=== PATIENT | female | born 1945 | race Caucasian/White ===

== ENCOUNTER 2021-05-12 16:06 | Outpatient (CLI) | payer MEDICARE | END 2021-05-12 16:07 | disposition home or self-care (01) | LOC: COV 16:06 | PROVIDERS: ATTEND Family Medicine | DX: Z20.822 Contact with and (suspected) exposure to COVID-19 (principal) ==

== ENCOUNTER 2022-01-13 07:00 | Outpatient (CLI) | payer MEDICARE ==
[2022-01-13 15:42] LABS: BILIRUBIN,URINE NEGATIVE (NEGATIVE); GLUCOSE, URINE (UA) NEGATIVE (NEGATIVE); KETONES,URINE (UA) NEGATIVE (NEGATIVE); LEUKOCYTE ESTERASE, URINE MODERATE (NEGATIVE); NITRITE,URINE NEGATIVE (NEGATIVE); OCCULT BLOOD,URINE LARGE (NEGATIVE); PH,URINE 5.5 PH (5.0-7.5); PROTEIN,URINE 100 mg/dL (NEGATIVE); UROBILINOGEN,URINE 0.2 (NORMAL) E.U./dL (NORMAL)
[2022-01-13 15:45] LABS: CLARITY,URINE HAZY (CLEAR)
[2022-01-13 16:08] LABS: BACTERIA,URINE Few /HPF (None Seen); RBC,URINE TNTC /HPF (0-5); SQUAMOUS EPITHELIAL CELL,UR FEW Squamous (<= Few); WBC,URINE >25 /HPF (0-5)
== END 2022-01-13 23:59 | disposition home or self-care (01) ==
LOC: LAB.R 07:00
PROVIDERS: ATTEND Internal Medicine
DX: R39.9 Unspecified symptoms and signs involving the genitourinary system (principal)
CPT/HCPCS: 81001; 81003; 87086

== ENCOUNTER 2022-03-30 08:00 | Outpatient (CLI) | payer MEDICARE ==
[2022-03-30 15:39] LABS: BASOPHILS # (AUTO) 0.1 10^3/uL (0.0-0.1); BASOPHILS % (AUTO) 0.8 %; EOSINOPHILS # (AUTO) 0.3 10^3/uL (0.0-0.7); EOSINOPHILS % (AUTO) 4.3 %; HCT - HEMATOCRIT 40.6 % (37.0-47.0); HGB - HEMOGLOBIN 13.6 g/dL (12.0-16.0); LYMPHOCYTES # (AUTO) 1.4 10^3/uL (1.5-3.5); MEAN CORPUSCULAR HGB CONC 33.5 g/dL (32.0-36.0); MEAN CORPUSCULAR VOLUME 98.5 fL (81.0-99.0); MEAN PLATELET VOLUME 10.5 fL (7.9-10.8); MONOCYTES # (AUTO) 0.7 10^3/uL (0.0-1.0); MONOCYTES % (AUTO) 10.7 %; NEUTROPHILS # (AUTO) 3.8 10^3/uL (1.5-6.6); NEUTROPHILS % (AUTO) 60.9 %; PLT - PLATELET COUNT 271 10^3/uL (130-450); RED BLOOD COUNT 4.12 10^6/uL (4.20-5.40); RED CELL DISTRIBUTION WIDTH 12.5 % (12.0-15.0); WHITE BLOOD COUNT 6.3 x10^3/uL (4.8-10.8)
[2022-03-30 16:26] LABS: ALBUMIN 4.5 g/dL (3.2-5.5); ALBUMIN/GLOBULIN RATIO 1.6 (1.0-2.2); ALKALINE PHOSPHATASE 57 IU/L (42-121); ALT ALANINE AMINOTRANSFERASE 13 IU/L (10-60); AST ASPARTATE AMINOTRANSFERASE 18 IU/L (10-42); BILIRUBIN,TOTAL 0.9 mg/dL (0.2-1.0); BUN - BLOOD UREA NITROGEN 19 mg/dL (6-20); CALCIUM 9.4 mg/dL (8.5-10.3); CARBON DIOXIDE - CO2 28 mmol/L (21-32); CHLORIDE 97 mmol/L (101-111); CHOL/HDL RATIO 2.7 (<4.4); CHOLESTEROL 188 mg/dL; CK- CREATINE KINASE 71 IU/L (22-269); GFR - MDRD 54 (>89); GLUCOSE 103 mg/dL (70-100); HDL CHOLESTEROL 70 mg/dL; LDL CHOLESTEROL,CALCULATED 92 mg/dL; LDL/HDL RATIO 1.3 (<4.4); POTASSIUM 3.6 mmol/L (3.5-5.0); SODIUM 134 mmol/L (135-145); TOTAL PROTEIN 7.3 g/dL (6.7-8.2); TRIGLYCERIDES 131 mg/dL; VLDL CHOLESTEROL 26 mg/dL
[2022-03-30 21:40] LABS: ESTIMATED AVERAGE GLUCOSE 123 mg/dL (70-100); HEMOGLOBIN A1c% 5.9 % (4.27-6.07)
== END 2022-03-30 23:59 | disposition home or self-care (01) ==
LOC: LAB.R 08:00
PROVIDERS: ATTEND Internal Medicine
DX: Z00.00 Encounter for general adult medical examination without abnormal findings (principal); U07.1 COVID-19; H02.009 Unspecified entropion of unspecified eye, unspecified eyelid; C50.919 Malignant neoplasm of unspecified site of unspecified female breast; E78.5 Hyperlipidemia, unspecified; I10 Essential (primary) hypertension; R73.01 Impaired fasting glucose; J30.2 Other seasonal allergic rhinitis
CPT/HCPCS: 80053; 80061; 82550; 83036; 83721; 84443; 85025

== ENCOUNTER 2022-05-05 10:04 | Outpatient (CLI) | payer MEDICARE ==
--- NOTE | 2022-05-09 10:24 | Mammography Report ---
BILATERAL DIGITAL SCREENING MAMMOGRAM 3D/2D: 05/05/2022 CLINICAL: Routine screening. Personal history of right breast cancer. No prior exams were available for comparison. Both breasts are almost entirely fatty (category a/<25% glandular tissue). The right breast has post-operative findings. There is a possible asymmetry in the left breast far posterior depth lateral region seen on the crani ocaudal view only. No other significant masses, calcifications, or other findings are seen in either breast. IMPRESSION: INCOMPLETE: NEEDS ADDITIONAL IMAGING EVALUATION The possible asymmetry in the left breast far posterior depth is indeterminate. Additional views wit h possible ultrasound are recommended. This exam was interpreted at Station ID: [id number]. NOTE: For mammograms, a report in lay terms will be sent to the patient. Approximately 15% of breast malignancies will not be visualized mammographically. In the management of a palpable breast mass, a negative mammogram must not discourage biopsy of a clinically suspicious lesion. Electronically Signed By: Chung Spencer M.D. aty/:05/05/2022 12:43:21 ACR BI-RADS Category 0: Incomplete 3340F PARENCHYMAL PATTERN: (F) - The breast(s) demonstrate(s) diffuse fatty replacement. BI-RADS CATEGORY: (0) - 0 Mammo and [place] [id number] Immediate follow-up LATERALITY: (L)
== END 2022-05-05 10:05 | disposition home or self-care (01) ==
LOC: DI 10:04
PROVIDERS: ATTEND Internal Medicine
DX: Z12.31 Encounter for screening mammogram for malignant neoplasm of breast (principal); R92.8 Other abnormal and inconclusive findings on diagnostic imaging of breast; Z85.3 Personal history of malignant neoplasm of breast

== ENCOUNTER 2022-05-29 10:47 | Outpatient (CLI) | payer MEDICARE ==
--- NOTE | 2022-05-30 11:31 | Mammography Report ---
UNILATERAL LEFT DIGITAL DIAGNOSTIC MAMMOGRAM 3D/2D: 05/29/2022 CLINICAL: Patient returns today to evaluate an asymmetry in the left breast. Personal hx of bc in rig ht breast. Comparison is made to exam dated: 05/05/2022 mammogram - [facility]. The left breast is almost entirely fatty (category a/<25% glandular tissue). The previously seen asymmetry in the left breast posterior depth seen on craniocaudal view only corre sponds with a portion of the lateral edge of the pectoralis major muscle. No significant masses, calcifications, or other findings are seen in the breast. IMPRESSION: BENIGN The previously seen left breast asymmetry corresponds to the left pectoralis major muscle. There is no mammographic evidence of malignancy. Return to annual mammogram screening schedule is rec ommended. This exam was interpreted at Station ID: [id number]. NOTE: For mammograms, a report in lay terms will be sent to the patient. Approximately 15% of breast malignancies will not be visualized mammographically. In the management of a palpable breast mass, a negative mammogram must not discourage biopsy of a clinically suspicious lesion. Electronically Signed By: Brennon muhammad/rodger:05/29/2022 16:35:18 ACR BI-RADS Category 2: Benign Finding(s) 3342F PARENCHYMAL PATTERN: (F) - The breast(s) demonstrate(s) diffuse fatty replacement. BI-RADS CATEGORY: (2) - 2 Mammogram [id number] return to screening LATERALITY: (B)
== END 2022-05-29 10:48 | disposition home or self-care (01) ==
LOC: DI 10:47
PROVIDERS: ATTEND Internal Medicine
DX: R92.8 Other abnormal and inconclusive findings on diagnostic imaging of breast (principal)

== ENCOUNTER 2022-10-02 13:32 | Outpatient (CLI) | payer MEDICARE ==
--- NOTE | 2022-10-02 14:31 | XRAY Report ---
PROCEDURE: Finger(s) LT INDICATIONS: LEFT THUMB PAIN TECHNIQUE: AP hand, 2 views of the first finger(s) acquired. COMPARISON: None FINDINGS: Bones: No fractures or dislocations. No suspicious bony lesions. First carpometacarpal and triscap he joint space narrowing with subchondral sclerosis. Generalized osseous demineralization present. Soft tissues: No suspicious soft tissue calcifications. IMPRESSION: Osteoarthritic changes without fracture or foreign body Reviewed by: Hawk Pond MD on 10/02/2022 1:30 PM [facility] Approved by: Hawk Pond MD on 10/02/2022 1:30 PM [place] Station ID: [id number]
== END 2022-10-02 13:33 | disposition home or self-care (01) ==
LOC: DI.WOS 13:32
PROVIDERS: ATTEND Orthopaedic Surgery
DX: M18.12 Unilateral primary osteoarthritis of first carpometacarpal joint, left hand (principal); M19.042 Primary osteoarthritis, left hand

== ENCOUNTER 2023-09-07 06:52 | Outpatient (CLI) | payer MEDICARE ==
--- NOTE | 2023-09-07 10:50 | MRI Report ---
PROCEDURE: KNEE WO - LT INDICATIONS: PAIN LEFT KNEE TECHNIQUE: Noncontrast sagittal PD fast spin echo and T2 fast spin echo with fat saturation, sagittal 3-D gradie nt sequence with fat saturation; coronal T1 spin echo and PD fast spin echo with fat saturation, and axial PD fast spin echo with fat saturation through the knee. COMPARISON: X-ray left knee, 05/08/2018. FINDINGS: Image quality: Excellent. Menisci: There is lateral meniscal extrusion and complex tear of the medial meniscus involving the belle dy, as well as both anterior and posterior horns. There is oblique tear of the posterior horn of the medial meniscus. A small vertical tear is noted i n the peripheral aspect of the body of the medial meniscus. Cruciate ligaments: There is high-grade partial tear of the anterior cruciate ligament. Some intact f ibers of ACL are present. The posterior cruciate ligament is intact. Medial structures: The medial collateral ligament appears intact. The semimembranosus tendon insert ions and meniscocapsular junction appear intact. Visualized portions of the pes anserinus tendons ap pear normal. No abnormal bursal fluid. Lateral structures: The lateral collateral ligament, long and short heads of the biceps femoris tend on appear intact. The popliteus tendon appears normal. Iliotibial band appears normal. Anterior structures: The quadriceps and patellar tendons appear intact. Patellar alignment is inga l. No femoral trochlear dysplasia or ventral trochlear prominence. No edema in the infrapatellar fa t pad. Bones and cartilage: No bone marrow contusions or fractures. There is moderate to severe tricompartm ental cartilage thinning and fibrillation with denuded or near-denuded articular surface. There is a 12 x 11 mm cartilage fragment in the weightbearing portion of the medial femoral condyle (series 5 im age 15; series 6 image 14). Joint space: There is fqwzp-ya-quhbgeee knee joint effusion. There is a large Pickett's cyst. Mild syn ovitis thickening. IMPRESSION: 1. Lateral meniscal tear. 2. Medial meniscal tear. 3. High-grade partial ACL tear. 4. A 12 x 11 mm cartilage fragment is seen in the weightbearing portion of the medial femoral condyle . 5. Moderate to severe generalized tricompartmental cartilage thinning and fibrillation. 6. Ofawf-vf-bncpgnes knee joint effusion. 7. A large Pickett's cyst. Reviewed by: Carmen Garzon MD on 09/07/2023 10:49 AM PST Approved by: Carmen Garzon MD on 09/07/2023 10:49 AM PST Station ID: [id number]
== END 2023-09-07 06:53 | disposition home or self-care (01) ==
LOC: DI 06:52
PROVIDERS: ATTEND Internal Medicine
DX: S83.232A Complex tear of medial meniscus, current injury, left knee, initial encounter (principal); S83.282A Other tear of lateral meniscus, current injury, left knee, initial encounter; S83.512A Sprain of anterior cruciate ligament of left knee, initial encounter; M25.462 Effusion, left knee; M71.22 Synovial cyst of popliteal space [Baker], left knee; M94.8X6 Other specified disorders of cartilage, lower leg

== ENCOUNTER 2023-09-13 08:00 | Outpatient (CLI) | payer MEDICARE ==
--- NOTE | 2023-09-19 11:21 | XRAY Report ---
PROCEDURE: Knee 4 View LT INDICATIONS: LEFT KNEE PAIN TECHNIQUE: 4 views of the left knee(s) were acquired. COMPARISON: None. FINDINGS: Bones: No fracture or subluxation is seen. The bones appear osteopenic. Diffuse soft tissue swelling is present. Tricompartmental DJD of the left knee is identified especially severe in the lateral and patellofemoral compartments. Note is made of DJD in the right knee also, suspicious tumor in the visualized medial compartment. Soft tissues: Small suprapatellar joint effusion present. IMPRESSION: DJD of the left knee Reviewed by: Brendon Sanabria MD on 09/13/2023 2:07 PM PST Approved by: Brendon Sanabria MD on 09/13/2023 2:07 PM PST Station ID: [id number]
== END 2023-09-13 23:59 | disposition home or self-care (01) ==
LOC: DI.WOS 08:00
PROVIDERS: ATTEND Physician Assistant Surgical
DX: M17.12 Unilateral primary osteoarthritis, left knee (principal)

== ENCOUNTER 2024-04-06 13:07 | Outpatient (CLI) | payer MEDICARE ==
--- NOTE | 2024-04-06 21:00 | XRAY Report ---
PROCEDURE: Hand 3+V BL INDICATIONS: PAIN OF BILATERAL HANDS TECHNIQUE: 3 views of the hand(s) acquired. COMPARISON: None. FINDINGS: Bones: No fractures or dislocations. No suspicious bony lesions. Interphalangeal and first CMC j oint space narrowing with osteophytosis. Subchondral cystic change of the first CMC joints, left grea ter than right. Soft tissues: No suspicious soft tissue calcifications or masses. IMPRESSION: No acute bony abnormality. Moderate interphalangeal and first CMC osteoarthritis. No significant abnormality of the right third digit. Reviewed by: Edilberto Wilder MD on 04/06/2024 8:59 PM PDT Approved by: Edilberto Wilder MD on 04/06/2024 8:59 PM PDT Station ID: [id number]
== END 2024-04-06 13:08 | disposition home or self-care (01) ==
LOC: DI 13:07
PROVIDERS: ATTEND Physician Assistant Surgical
DX: M18.11 Unilateral primary osteoarthritis of first carpometacarpal joint, right hand (principal); M19.041 Primary osteoarthritis, right hand